=== PATIENT | female | born 1970 | race Caucasian/White ===

== ENCOUNTER 2021-03-26 21:58 | Emergency (ER) | payer SELFPAY ==
[~2021-03-26] VITALS: Ht 170.2 cm; Wt 82.0 kg
[~2021-03-26 21:58] MED LIST: BENADRYL 50MG C50 MG PO; MEDDOSEPAK PO
[2021-03-26] MEDS ORDERED: KEFLEX500 MG PO (23:16)
[2021-03-26 23:30] VITALS: BP 115/72
== END 2021-03-26 23:30 | disposition home or self-care (01) | DRG 605 ==
LOC: ED 21:58
PROC: 0HQDXZZ Repair Right Lower Arm Skin, External Approach (ICD-10-PCS; principal; 2021-03-26)
DX: S61.511A Laceration without foreign body of right wrist, initial encounter (principal); W25.XXXA Contact with sharp glass, initial encounter; Y93.89 Activity, other specified; Y92.009 Unspecified place in unspecified non-institutional (private) residence as the place of occurrence of the external cause

== ENCOUNTER 2021-04-07 14:58 | Emergency (ER) | payer SELFPAY ==
[~2021-04-07] VITALS: Ht 170.2 cm; Wt 65.0 kg
[~2021-04-07 14:58] MED LIST changes: +KEFLEX500 MG PO
== END 2021-04-07 16:05 | disposition home or self-care (01) | DRG 950 ==
LOC: ED 14:58
DX: S61.511D Laceration without foreign body of right wrist, subsequent encounter (principal); X58.XXXD Exposure to other specified factors, subsequent encounter

== ENCOUNTER 2023-04-15 10:05 | Emergency (ER) | payer SELFPAY ==
[~2023-04-15] VITALS: Ht 170.2 cm; Wt 68.0 kg
[2023-04-15 11:50] LABS: BASO% 0.3 % (0-3); EOS% 5.2 % (0-8); HEMATOCRIT 38.8 % (37.0-47.0); HEMOGLOBIN 12.5 g/dl (12.0-16.0); IMMATURE GRANULOCYTES 0.3 % (0.0-5.0); LYMPH% 22.7 % (15-41); MEAN CELL VOLUME 93.5 fL CALC (80.0-100.0); MEAN CORPUSCULAR HGB 30.1 pG CALC (26.0-32.0); MEAN CORPUSCULAR HGB CONC 32.2 g/dL CAL (32.0-36.0); MONO% 8.4 % (2-13); NEUT# 5.91 thou/uL (2.00-7.15); NEUT% 63.1 % (42-76); RED BLOOD COUNT 4.15 mill/uL (4.20-5.60)
[2023-04-15 12:00] LABS: ALBUMIN 4.2 g/dL (3.2-5.0); ALKALINE PHOSPHATASE 112 u/l (38-126); ANION GAP 13 (6-22 (CALC)); BUN 18 mg/dL (7-17); BUN/CREATININE RATIO 27 (12-20 (CALC)); CARBON DIOXIDE 25 mmol/l (22-30); CHLORIDE 103 mmol/l (95-108); CREATININE 0.7 mg/dL (0.5-1.0); GFR FOR AFR.AMER. > 60 ML/MIN (>=60 (CALC)); GFR OTHER RACES > 60 ML/MIN (>=60 (CALC)); POTASSIUM 3.8 mmol/l (3.5-5.1); SGOT/AST 29 u/l (14-36); SODIUM 138 mmol/l (137-146); TOTAL PROTEIN 7.5 g/dL (6.3-8.2)
[2023-04-15 12:28] LABS: BILIRUBIN, TOTAL 0.6 mg/dL (0.02-1.3)
[2023-04-15] MEDS ORDERED: BACTRIM DS1 TAB PO (14:15)
[2023-04-15 14:42] VITALS: BP 125/92
== END 2023-04-15 14:47 | disposition home or self-care (01) | DRG 607 ==
LOC: ED 10:05
PROVIDERS: Family Medicine
PROC: 0HDLXZZ Extraction of Left Lower Leg Skin, External Approach (ICD-10-PCS; principal; 2023-04-15)
DX: S80.862A Insect bite (nonvenomous), left lower leg, initial encounter (principal); L03.116 Cellulitis of left lower limb; F15.10 Other stimulant abuse, uncomplicated; W57.XXXA Bitten or stung by nonvenomous insect and other nonvenomous arthropods, initial encounter; Y92.099 Unspecified place in other non-institutional residence as the place of occurrence of the external cause

== ENCOUNTER 2023-07-10 14:19 | Emergency (ER) | payer SELFPAY ==
[~2023-07-10] VITALS: Ht 170.2 cm; Wt 65.5 kg
[~2023-07-10 14:19] MED LIST changes: +BACTRIM DS1 TAB PO
[2023-07-10 14:49] VITALS: BP 145/104
== END 2023-07-10 15:10 | disposition home or self-care (01) | DRG 951 ==
LOC: ED 14:19
DX: Z48.02 Encounter for removal of sutures (principal)

== ENCOUNTER 2024-01-20 11:41 | Emergency (ER) | payer SELFPAY ==
[~2024-01-20] VITALS: Ht 170.2 cm; Wt 65.8 kg
[2024-01-20] VITALS (7 sets, daily range): BP systolic 97–120; BP diastolic 68–82
[2024-01-20] MEDS ORDERED: Diph, Acellular Pertussis, Tet 0.5 ML/VIAL (Tdap) SDV IM ONE (11:50)
[2024-01-20] MEDS ORDERED: LIDOcaine HCl 1% (Local Anesth.) 20 ML VIAL STI STA (11:53)
[2024-01-20] MEDS ORDERED: STERILE WATER 10 ML/VIAL SDV IM ONE (11:55)
[2024-01-20] MEDS ORDERED: ceFAZolin 1 GM/VIAL SDV IM ONE (11:55)
[2024-01-20] MEDS ORDERED: POVIDONE IODINE 0.5 OZ/BTL TOP ONE (11:55)
[2024-01-20] MEDS ORDERED: CEPHALEXIN500 M1 PO (13:04)
== END 2024-01-20 13:09 | disposition home or self-care (01) | DRG 605 ==
LOC: ED 11:41
PROC: 0HQFXZZ Repair Right Hand Skin, External Approach (ICD-10-PCS; principal; 2024-01-20)
DX: S61.011A Laceration without foreign body of right thumb without damage to nail, initial encounter (principal); S51.811A Laceration without foreign body of right forearm, initial encounter; W25.XXXA Contact with sharp glass, initial encounter; Y93.G3 Activity, cooking and baking